=== PATIENT | female | born 1980 | race Caucasian/White ===

== ENCOUNTER 2016-05-25 19:00 | Emergency (ER) | payer OTHER ==
[~2016-05-25] VITALS: Ht 162.6 cm; Wt 58.0 kg
[~2016-05-25 19:00] MED LIST: ALBU6.7H INH; PRED-503 PO; ZITH250T PO
[2016-05-25 19:02] VITALS: BP 105/56; PULSE 112; RESP 16; TEMP 98; O2SAT 98
[2016-05-25] MEDS ORDERED: CEPH-460 PO (19:38)
[2016-05-25] MEDS ORDERED: BACT800T5 PO (19:38)
--- NOTE | 2016-05-25 19:42 | PD ---
HPI Chief Complaint: Lump, Cyst, Hernia Time Seen by Provider: 19:38 Travel History International Travel<30 days: No Contact w/Intl Traveler<30days: No Traveled to known affect area: No History of Present Illness HPI 35-year-old white female presents to emergency department with complains of an infection on her right posterior shoulder. She states that she has had multiple what she felt were insect bites to her arms, legs and back. She has excoriated these. The lesion on her right shoulder now has become increasingly painful, red and swollen. No drainage. No fever chills. Pain is mild to moderate. Denies history of MRSA. 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 Review of Systems Except as stated in HPI: all other systems reviewed are Neg Physical Exam Narrative GENERAL: This is a well-nourished, well-developed patient, in no apparent distress. SKIN: Patient has a 3 x 3 cm tender erythematous developing abscess to her right posterior shoulder. There is no fluctuance or pointing. It is indurated. The patient has multiple excoriated lesions on her upper and lower extremities as well as her shoulders. I see no evidence of IV drug abuse. HEAD: Atraumatic. Normocephalic. EYES: PERRL, EOMI, no discharge or injection. No scleral icterus. EARS: Clear NOSE: Nasal turbinates appear normal. THROAT: Mucosa pink and moist. Airway patent. NECK: Trachea midline. supple, moves head freely. LUNGS: Clear to auscultation. CV: Regular in rhythm. ABDOMEN: Soft nontender. EXT: No clubbing cyanosis or edema. Data Data Last Documented VS Vital Signs Date Time Temp Pulse Resp B/P Pulse Ox O2 Delivery O2 Flow Rate FiO2 05/25/16 19:02 98.0 112 16 105/56 98 Orders Sulfamet-Trimeth Ds 800-160 Mg (Bactrim (05/25/16 19:45) Cephalexin (Keflex) (05/25/16 19:45) MDM Medical Decision Making Medical Screen Exam Complete: Yes Emergency Medical Condition: Yes Medical Record Reviewed: Yes Differential Diagnosis MDM: High Differential diagnoses: Abscess, folliculitis, cellulitis, lymphangitis, abrasion, contact dermatitis, formication Narrative Course The patient is experiencing formication. She has picked her self and now has a secondary wound infection. I see no abscess that can be drained at this time. She is advised to continue warm compresses. She is given Bactrim DS and Keflex 500 mg by mouth here in the ER and will continue this at home. This is right shoulder abscess, formication Diagnosis Primary Impression: Abscess Additional Impression: Formication Patient Instructions: General Instructions Additional Instructions: Rest. Elevation. keep clean and dry. Warm compresses. Daily wound care with soap, water and Neosporin. Three Advil every 6 hours. Bactrim DS, Keflex. Follow-up with a primary care doctor in 2-3 days. Return to the ER for any problems. Med/Other Pt SpecificInfo: Prescription(s) given, Wound Care Scripts Sulfamethoxazole-Trimethoprim (Bactrim DS)800-160 Mg Tab1 Tab PO BID #20 TAB Prov:Shmuel Keenan MD 05/25/16 Cephalexin (Keflex)500 Mg [id number] Mg PO Q6H #40 CAP Prov:Shmuel Keenan MD 05/25/16 Disposition: 01 DISCHARGE HOME Condition: Stable Miguel Angel Cummings May 25, 2016 19:42
[2016-05-25] MEDS ORDERED: SULFAMETHOXAZOLE-TRIMETHOPRIM DS 800-160 MG TAB PO ONE (19:45)
[2016-05-25] MEDS ORDERED: CEPHALEXIN MONOHYDRATE 500 MG CAP PO ONE (19:45)
== END 2016-05-25 20:08 | disposition home or self-care (01) ==
LOC: NEPB 19:00
DX: L02.413 Cutaneous abscess of right upper limb (principal); R20.2 Paresthesia of skin; L98.9 Disorder of the skin and subcutaneous tissue, unspecified; Z72.0 Tobacco use
CPT/HCPCS: 99282